=== PATIENT | female | born 1980 ===

== ENCOUNTER 2018-08-23 06:42 | Inpatient (IN) | payer OTHER ==
[~2018-08-23] VITALS: Ht 157.5 cm; Wt 2.3 kg
== END 2018-08-26 14:52 | disposition home or self-care (01) | DRG 785 ==
LOC: LDR 06:42 → OB/GYN 11:17
PROVIDERS: ADMIT Specialist
PROC: 0UL70ZZ Occlusion of Bilateral Fallopian Tubes, Open Approach (ICD-10-PCS; 2018-08-23)
PROC: 4A1HXCZ Monitoring of Products of Conception, Cardiac Rate, External Approach (ICD-10-PCS; 2018-08-23)
PROC: 10D00Z1 Extraction of Products of Conception, Low, Open Approach (ICD-10-PCS; principal; 2018-08-23 08:00)
DX: O34.211 Maternal care for low transverse scar from previous cesarean delivery (principal); O75.82 Onset (spontaneous) of labor after 37 completed weeks of gestation but before 39 completed weeks gestation, with delivery by (planned) cesarean section; O24.420 Gestational diabetes mellitus in childbirth, diet controlled; Z3A.37 37 weeks gestation of pregnancy; Z37.0 Single live birth; Z30.2 Encounter for sterilization

== ENCOUNTER 2018-10-01 13:58 | Outpatient (CLI) | payer OTHER | END 2018-10-01 14:02 | disposition home or self-care (01) | LOC: SONOGRAMA 13:58 | DX: N61.1 Abscess of the breast and nipple (principal); N60.11 Diffuse cystic mastopathy of right breast; N60.12 Diffuse cystic mastopathy of left breast ==

== ENCOUNTER 2018-10-04 12:03 | Outpatient (CLI) | payer OTHER | END 2018-10-04 12:08 | disposition home or self-care (01) | LOC: SONOGRAMA 12:03 | DX: N60.11 Diffuse cystic mastopathy of right breast (principal); N60.12 Diffuse cystic mastopathy of left breast; N61.0 Mastitis without abscess; N61.1 Abscess of the breast and nipple ==

== ENCOUNTER 2018-10-04 16:51 | Outpatient (CLI) | payer OTHER | END 2018-10-04 18:34 | disposition home or self-care (01) | LOC: LAB 16:51 | DX: N61.1 Abscess of the breast and nipple (principal) ==

== ENCOUNTER 2018-10-21 08:43 | Outpatient (CLI) | payer OTHER | END 2018-10-21 08:53 | disposition home or self-care (01) | LOC: SONOGRAMA 08:43 | DX: N61.1 Abscess of the breast and nipple (principal); N61.0 Mastitis without abscess ==

== ENCOUNTER 2018-11-15 12:36 | Outpatient (CLI) | payer OTHER | END 2018-11-15 12:38 | disposition home or self-care (01) | LOC: SONOGRAMA 12:36 → MAMO-SONO 13:15 | DX: N61.1 Abscess of the breast and nipple (principal); N61.0 Mastitis without abscess ==